=== PATIENT | male | born 1970 | race Caucasian/White ===

== ENCOUNTER 2024-09-08 19:15 | Emergency (ER) | payer OTHER ==
[~2024-09-08] VITALS: Ht 177.8 cm; Wt 72.6 kg
[2024-09-08 23:24] VITALS: BP 135/88; TEMP 98.6; O2SAT 98
[2024-09-08] MEDS ORDERED: HYDR-3980 PO (23:33)
[2024-09-08] MEDS ORDERED: HYDROCODONE/APAP 5/325MG TABLET ONE (23:37)
[2024-09-08] MEDS ORDERED: TDAP [DIPH/PERTUSSIS/TET] 0.5 ML VIAL IM ONE (23:37)
[2024-09-08] MEDS: TDAP [DIPH/PERTUSSIS/TET] 0.5 ML VIAL IM ONE (23:45)
[2024-09-08] MEDS: HYDROCODONE/APAP 5/325MG TABLET PO ONE (23:46)
== END 2024-09-08 23:51 | disposition home or self-care (01) ==
LOC: ER 19:25
DX: R10.9 Unspecified abdominal pain (principal); X31.XXXA Exposure to excessive natural cold, initial encounter
CPT/HCPCS: 90715